=== PATIENT | female | born 1965 | race African-American/Black ===

== ENCOUNTER 2023-07-11 10:57 | Emergency (ER) | payer MEDICAID ==
[~2023-07-11] VITALS: Ht 162.6 cm; Wt 59.0 kg
[2023-07-11 11:08] VITALS: O2SAT 98
[2023-07-11] MEDS ORDERED: LIDOCAINE HCL/PF 1% 10 MG/ML 5ML VIAL INFIL ONE (12:00)
[2023-07-11] MEDS ORDERED: BACITRACIN ZINC OINT UDPKT TOP ONE (12:00)
[2023-07-11] MEDS ORDERED: SULF1TAB48 MT (13:14)
[2023-07-11] MEDS ORDERED: AMOX1TAB16 MT (13:14)
[2023-07-11] MEDS ORDERED: IBUP-2029 MT (13:15)
[2023-07-11 13:37] VITALS: BP 142/65; PULSE 85; RESP 16; TEMP 98.5
== END 2023-07-11 13:38 | disposition home or self-care (01) ==
LOC: ER 10:57
DX: L03.011 Cellulitis of right finger (principal)
CPT/HCPCS: 87070; 87186; 87205; 87077; 10060; 99283; J3490; Z7610 ×3

== ENCOUNTER 2023-07-13 01:38 | Emergency (ER) | payer MEDICAID ==
[~2023-07-13] VITALS: Ht 162.6 cm; Wt 59.0 kg
[~2023-07-13 01:38] MED LIST: AMOX1TAB16 MT; IBUP-2029 MT; SULF1TAB48 MT
[2023-07-13 01:41] VITALS: BP 145/81; RESP 20; TEMP 98.2; O2SAT 100
[2023-07-13 01:46] VITALS: PULSE 107
[2023-07-13] MEDS ORDERED: BACITRACIN ZINC OINT UDPKT TOP ONE (03:30)
[2023-07-13] MEDS ORDERED: LIDOCAINE HCL 1% 20ML VIAL (Pyxis) INJ INFIL ONE (03:30)
[2023-07-13] MEDS ORDERED: CLINDAMYCIN 300 MG in DEXTROSE 5% WATER 50 ML IV STA (05:03)
== END 2023-07-13 05:22 | disposition home or self-care (01) ==
LOC: ER 01:56 → CMPBEDREQ 21:52
DX: L03.011 Cellulitis of right finger (principal); M79.644 Pain in right finger(s)
CPT/HCPCS: 10060; 99282; J3490 ×2; J7060